=== PATIENT | male | born 1965 | race Caucasian/White ===

== ENCOUNTER 2021-01-18 15:17 | Emergency (ER) | payer OTHER ==
[~2021-01-18] VITALS: Ht 185.4 cm; Wt 107.0 kg
[2021-01-18 15:40] LABS: ABSOLUTE BASOPHILS 0.1 thou/uL (0.0-0.2); ABSOLUTE EOSINOPHILS 0.1 thou/uL (0.0-0.7); ABSOLUTE LYMPHOCYTES 1.4 thou/uL (0.8-5.3); ABSOLUTE MONOCYTES 0.5 thou/uL (0.0-1.2); BASOPHILS 0.9 %; EOSINOPHILS 0.5 %; HEMATOCRIT 45.9 % (42.0-52.0); HEMOGLOBIN 15.9 gm/dL (14.0-18.0); LYMPHOCYTES 14.1 %; MCHC 34.6 g/dL (28.0-37.0); MCV 86.6 fL (80.0-100.0); MONOCYTES 5.4 %; MPV 8.6 fl. (7.2-11.1); NUCLEATED RBCS 0 /100WBC; PLATELET COUNT* 231 thou/uL (150-400); POLYS 79.1 %; RBC 5.31 mil/uL (4.50-6.00); RDW-CV 13.2 % (10.5-14.5); WBC 10.1 thou/uL (4.0-11.0)
[2021-01-18 15:59] LABS: ANION GAP 6 mmol/L (7-16); BUN 13 mg/dL (7-18); CALCIUM 9.3 mg/dL (8.5-10.1); CHLORIDE 103 mmol/L (98-107); CO2 27 mmol/L (21-32); CREATININE 0.9 mg/dL (0.6-1.3); GLUCOSE 106 mg/dL (70-99); SODIUM 136 mmol/L (136-145)
[2021-01-18 16:13] LABS: ALBUMIN 4.5 g/dL (3.4-5.0); ALKALINE PHOSPHATASE 68 U/L (46-116); CK-MB MASS < 0.5 ng/mL (<0.5-3.6); LIPASE 161 U/L (73-393); MAGNESIUM 1.9 mg/dL (1.8-2.4); NT-PRO BRAIN NAT PEPTIDE 29 pg/mL (<300); SGOT 18 U/L (15-37); SGPT 30 U/L (30-65); TOTAL BILIRUBIN 1.1 mg/dL (<0.1-1.0); TOTAL PROTEIN 7.7 g/dL (6.4-8.2)
--- NOTE | 2021-01-18 16:35 | EKG ---
[place] [address] ELECTROCARDIOGRAM REPORT Name: LUNA LUGO Room: [facility]#: [id number] Admission: 01/18/21 Attend Phys: Discharge: Date of : 67 Date of Service: 01/18/21 1522 Report #: [id number] THIS REPORT FOR: //name// [facility] ED Test Date: 2021-01-18 Test Time: 15:22:25 Pat Name: LUNA LUGO Department: Room: Gender: Apartment Community Assistant Manager: : 1965 Requested By: Espinoza Dove Order Number: [id number] MD: Jose Schwartz Measurements Intervals [place] Rate: 59 P: 55 NH: 175 QRS: 104 QRSD: 113 T: 56 QT: 432 QTc: 428 Interpretive Statements Sinus rhythm Left posterior fascicular block No previous ECG available for comparison Electronically Signed On 01-18-2021 16:34:50 CDT by Jose Schwartz [email or web address] <ELECTRONICALLY SIGNED> By: Jose Schwartz MD, [facility] 01/18/21 1634 1522 152 Jose Schwartz MD, [facility] /EPI
[2021-01-18 16:41] VITALS: BP 157/90
== END 2021-01-18 16:42 | disposition home or self-care (01) ==
LOC: M.ERS 15:17
PROVIDERS: Family Medicine
DX: R07.89 Other chest pain (principal); R10.13 Epigastric pain; R11.0 Nausea; Z88.0 Allergy status to penicillin